=== PATIENT | female | born 1990 | race Caucasian/White ===

== ENCOUNTER 2017-05-05 13:19 | Emergency (ER) | payer BC, MEDICAID ==
[~2017-05-05] VITALS: Ht 167.6 cm; Wt 78.0 kg
[2017-05-05] MEDS ORDERED: EFFE75CA75 PO (13:42)
[2017-05-05] MEDS ORDERED: PRENATAL VITAMIN PO (13:42)
[2017-05-05] MEDS ORDERED: ACETAMINOPHEN TAB 650MG DOSE (2X325MG) PO ONE (15:30)
[2017-05-05 16:12] LABS: BASO % 0.6 % (0.0-1.0); EOS % 0.4 % (0.0-3.0); LARGE UNSTAINED CELL # 0.1 K/mm3 (0.0-0.4); LARGE UNSTAINED CELL % 1.5 % (0.0-4.0); LYMPH # 2.2 K/mm3 (1.5-6.5); LYMPH % 23.1 % (24.0-44.0); MEAN CORPUSCULAR HEMOGLOBIN 28.2 pg (27.0-33.0); MONO # 0.4 K/mm3 (0.0-0.8); MONO % 4.6 % (0.0-5.0); NEUTROPHILS # 6.2 K/mm3 (1.8-7.7); NEUTROPHILS % 69.7 % (36.0-66.0); PLATELET COUNT, AUTOMATED 237 k/mm3 (150-450); RED CELL DISTRIBUTION WIDTH 13.3 % (11.5-14.5); WHITE BLOOD COUNT 8.9 K/mm3 (4.0-10.0)
[2017-05-05 17:03] VITALS: BP 141/81
--- NOTE | 2017-05-05 17:55 | REP ---
FIRST TRIMESTER ULTRASOUND: Real-time sonographic evaluation of the gravid uterus is performed utilizing transabdominal and endovaginal technique. The uterus measures 8.5 x 4.8 x 5.5 cm. A 3 mm pole is seen within an intrauterine gestational sac, which also contains a yolk sac. No heart motion is detected. The right ovary measures 2.5 x 1.9 x 2.0 cm. Left ovary measures 2.8 x 2.3 x 3.2 cm. There is no evidence of ovarian torsion with blood flow seen in each ovary with duplex Doppler evaluation. Cystic structure of the left ovary probably represents a corpus luteum at 2.2 x 1.5 x 1.7 cm. There is no free fluid. IMPRESSION: Intrauterine gestational sac contains a yolk sac and a pole. No heart motion is seen at this time. This may represent a viable early intrauterine gestation 5 weeks 6 days gestational age. Complex corpus luteum left ovary. No torsion or free fluid. There is a small subchorionic hemorrhage on the right measuring 4 mm in diameter. Recommend followup ultrasound in 7 to 10 days to document viability. Signed by Hector Hammer MD 05/06/2017 05:04 P
== END 2017-05-05 17:16 | disposition home or self-care (01) ==
LOC: M ED 13:19
DX: O20.0 Threatened abortion (principal); Z3A.01 Less than 8 weeks gestation of pregnancy; N83.292 Other ovarian cyst, left side; O34.81 Maternal care for other abnormalities of pelvic organs, first trimester; Z79.899 Other long term (current) drug therapy

== ENCOUNTER 2017-05-11 09:52 | Emergency (ER) | payer BC, MEDICAID ==
[~2017-05-11] VITALS: Ht 170.2 cm; Wt 77.4 kg
[~2017-05-11 09:52] MED LIST: EFFE75CA75 PO; PRENATAL VITAMIN PO
[2017-05-11 09:53] VITALS: BP 133/65
[2017-05-11] MEDS ORDERED: ZOFR4TAB3 PO (10:06)
[2017-05-11] MEDS ORDERED: NS 1,000 ML IV ONE (10:30)
[2017-05-11] MEDS ORDERED: METOCLOPRAMIDE INJ 10MG/2ML VIAL (J2765) IV ONE (10:30)
[2017-05-11 11:05] LABS: BASO % 0.6 % (0.0-1.0); EOS % 0.7 % (0.0-3.0); LARGE UNSTAINED CELL # 0.1 K/mm3 (0.0-0.4); LARGE UNSTAINED CELL % 1.7 % (0.0-4.0); LYMPH # 1.6 K/mm3 (1.5-6.5); LYMPH % 23.4 % (24.0-44.0); MEAN CORPUSCULAR HEMOGLOBIN 27.9 pg (27.0-33.0); MEAN CORPUSCULAR HGB CONC 34.2 g/dl (32.0-36.5); MEAN CORPUSCULAR VOLUME 81.8 fl (80.0-96.0); MONO # 0.3 K/mm3 (0.0-0.8); MONO % 4.9 % (0.0-5.0); NEUTROPHILS # 4.4 K/mm3 (1.8-7.7); NEUTROPHILS % 68.7 % (36.0-66.0); PLATELET COUNT, AUTOMATED 201 k/mm3 (150-450); WHITE BLOOD COUNT 6.4 K/mm3 (4.0-10.0)
[2017-05-11 11:30] LABS: ALBUMIN 3.8 GM/DL (3.2-5.2); ALBUMIN/GLOBULIN RATIO 1.03 (1.00-1.93); ALKALINE PHOSPHATASE 55 U/L (45-117); ALT/SGPT 16 U/L (12-78); ANION GAP 7 MEQ/L (8-16); AST/SGOT 8 U/L (15-37); BILIRUBIN,DIRECT 0.1 MG/DL (0.0-0.2); BILIRUBIN,TOTAL 0.5 MG/DL (0.2-1.0); BLOOD UREA NITROGEN 9 MG/DL (7-18); CALCIUM LEVEL 8.9 MG/DL (8.5-10.1); CARBON DIOXIDE LEVEL 26 MEQ/L (21-32); CHLORIDE LEVEL 106 MEQ/L (98-107); CREATININE FOR GFR 0.66 MG/DL (0.55-1.02); GLOMERULAR FILTRATION RATE > 60.0 (>60); GLUCOSE, FASTING 98 MG/DL (70-105); POTASSIUM SERUM 3.7 MEQ/L (3.5-5.1); SODIUM LEVEL 139 MEQ/L (136-145); TOTAL PROTEIN 7.5 GM/DL (6.4-8.2)
[2017-05-11] MEDS ORDERED: CVS25TAB16 PO (12:21)
[2017-05-11] MEDS ORDERED: PYRI25TA3 PO (12:21)
== END 2017-05-11 12:30 | disposition home or self-care (01) ==
LOC: M ED 09:52
DX: O21.9 Vomiting of pregnancy, unspecified (principal); Z79.899 Other long term (current) drug therapy; Z3A.01 Less than 8 weeks gestation of pregnancy
CPT/HCPCS: 36415; 80048; 80076; 83690; 85025; 96361; 96374; 99283; J2765